=== PATIENT | female | born 1955 | race Caucasian/White ===

== ENCOUNTER → 2020-06-01 | Outpatient (CLI) | payer OTHER, MEDICARE ==
[~2020-06-01] MED LIST: ASA81BEC PO; CENTRUM SILVER1 EAC6 PO; FIBER THERAPY0.52 GM PO; IBUPROFEN200 M1 PO; LIPITOR 10 MG10 M1 PO; LOSARTAN-HCTZ1 EAC3 PO; MAG-OXIDE400 MG PO; MIRAPEX0.125 MG PO; OMEGA 3-6-9 11200 M1 PO; TURMERIC500 M2 PO; VITAMIN D325 MC3 PO
== END ==
LOC: LAB 07:36
PROVIDERS: ATTEND Orthopaedic Surgery
DX: Z01.812 Encounter for preprocedural laboratory examination (principal); Z20.822 Contact with and (suspected) exposure to COVID-19

== ENCOUNTER 2020-06-07 11:05 | Observation (INO) | payer OTHER, MEDICARE ==
[2020-06-01 11:08] LABS: HEMATOCRIT 40.2 % (37.0-47.0); HEMOGLOBIN 13.2 gm/dL (12.0-15.0); MCH 32.9 pg (26.0-34.0); MCHC 32.9 g/dL (28.0-37.0); RBC 4.02 mil/uL (4.20-5.00); RDW 12.1 % (10.5-14.5); WBC 4.5 thou/uL (4.0-11.0)
[2020-06-01 11:09] LABS: URINE BILIRUBIN NEGATIVE (Negative); URINE BLOOD NEGATIVE (Negative); URINE CLARITY CLEAR; URINE COLOR YELLOW; URINE GLUCOSE-RANDOM* NEGATIVE (Negative); URINE KETONES NEGATIVE (Negative); URINE LEUKOCYTES-REFLEX NEGATIVE (Negative); URINE NITRITE-REFLEX NEGATIVE (Negative); URINE PROTEIN (DIPSTICK) NEGATIVE (Negative); URINE SPECIFIC GRAVITY <= 1.005 (1.005-1.035); URINE UROBILINOGEN 0.2 E.U./dl (0.2-1.0)
[2020-06-01 11:17] LABS: CALCIUM 9.4 mg/dL (8.5-10.1); CREATININE 1.1 mg/dL (0.6-1.0); POTASSIUM 3.6 mmol/L (3.5-5.1)
[2020-06-01 11:27] LABS: PROTIME 10.5 Seconds (9.3-11.4)
--- NOTE | 2020-06-01 11:37 | EKG ---
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
[~2020-06-07] VITALS: Ht 167.6 cm; Wt 97.1 kg
[2020-06-07 12:00] VITALS: BP 137/73
[2020-06-07 18:10] VITALS: BP 127/72
--- NOTE | 2020-06-07 18:30 | NUR ---
PT RECEIVED FROM THE REC ROOM AT 1715 ALERT AND IN NO PAIN. SOME TINGLING IN TOES. LUCIANO DSNG DRY. POLAR PACK IN PLACE W/ TEDS/SCDS. EATING AND DRINKING WELL. VOIDED PER BEDPAN. WILL WORK W/ THERAPY TOMORROW AND GO HOME.
[2020-06-07 19:44] VITALS: BP 131/66
--- NOTE | 2020-06-08 05:04 | NUR ---
ASSESSED AT START OF SHIFT. PT A&OX4. RATES PAIN 5/10. MANAGED WITH PO PAIN PILL. IV INTACT AND FLUIDS INFUSING. LEFT KNEE DRESSING INTACT WITH LUCIANO AND POLAR PACK. SCD'S AND TEDHOSE ON BHANU LOWER EXT. MILD TINGLING IN LEG ON ASSESSEMENT. VOIDS VIA BED HARDING. FALL PREC IN PLACE AND CALL LIGHT AT REACH WILL CONT WITH POC TILL EOS.
[2020-06-08 05:06] VITALS: BP 97/51
[2020-06-08 06:12] LABS: HEMATOCRIT 30.4 % (37.0-47.0); HEMOGLOBIN 10.2 gm/dL (12.0-15.0); MCHC 33.7 g/dL (28.0-37.0); RBC 3.01 mil/uL (4.20-5.00); RDW 12.2 % (10.5-14.5); WBC 9.2 thou/uL (4.0-11.0)
[2020-06-08 07:55] VITALS: BP 103/47
[2020-06-08] MEDS ORDERED: HYDROCODON-ACE1 EAC7 PO (10:01)
[2020-06-08] MEDS ORDERED: NEURONTIN 300M300 M2 PO (10:02)
[2020-06-08] MEDS ORDERED: MS CONTIN15 MG PO (10:02)
--- NOTE | 2020-06-08 10:06 | O ---
[facility] [place] [address] OPERATIVE REPORT Name: SWAPNA SANTIAGO Room #: 447-P [facility] Kasia#: [id number] Admission: 06/07/20 Attend Phys: Fabian Jacobson MD Discharge: Date of : 55 Report #: [id number] THIS REPORT FOR: cc: DARIAN RICHARDSON MD, RADHIKA MD Abraham,Fabian Shea MD ~ DATE OF SERVICE: 06/07/2020 PREOPERATIVE DIAGNOSIS: Left knee osteoarthritis. POSTOPERATIVE DIAGNOSIS: Left knee osteoarthritis. PROCEDURE: Left total knee arthroplasty using Navio robotic creative assistant. SURGEON: Fabian Jacobson MD SIDE PULLER: Michelle Crowell PA-C. INDICATIONS FOR SIDE PULLER: Throughout the case, extensive retraction and manipulation of the knee was required. This was afforded to me by my creative assistant. ANESTHESIA: LMA with an adductor canal block. IMPLANTS: Vang and Nephew size 5 Journey II BCS Oxinium femur, size 3 tibia, size 10 polyethylene and size 32 patella. TOURNIQUET TIME: 57 minutes. ESTIMATED BLOOD LOSS: 25 mL. COMPLICATIONS: None. SPECIMENS: None. CONDITION UPON LEAVING THE OPERATING ROOM: Stable. INDICATIONS FOR PROCEDURE: The patient is a 65-year-old female with left knee osteoarthritis. She had failed conservative measures for this and after discussion with her, she elected for left total knee arthroplasty. DESCRIPTION OF PROCEDURE: Risks, benefits, alternatives, complications were discussed in detail with the patient including but not limited to risk of anesthesia, risk of damage to nerves, arteries, blood vessels, risk for infection, bleeding, risk for continued knee pain, need for reoperation. Informed consent was obtained from the patient. Left knee was appropriately [address] [address] OPERATIVE REPORT Name: SWAPNA SANTIAGO Room #: 447-P [facility] John Pedroza#: [id number] Admission: 06/07/20 Attend Phys: Fabian Jacobson MD Discharge: Date of : 55 Report #: [id number] marked in the preoperative holding area. IV Ancef was given for preoperative antibiotics. She was brought to the operating room and placed in the supine position on the operating room table. LMA anesthesia was induced without complication. Tourniquet was placed on the left thigh. Left lower extremity was prepped and draped in normal sterile fashion. Timeout was performed properly identifying the patient and procedure as well as the instrumentation and implants. All in the operating room were in agreement. Left lower extremity was exsanguinated, tourniquet was inflated. Tourniquet time was 57 minutes. Standard midline approach to the knee was made with 10 blade through the skin. Dissection was taken down sharply to the fascia and deep flaps were developed medially and laterally. Fresh 10 blade was used to make a medial parapatellar arthrotomy and the knee was inspected. There was severe patellofemoral compartment osteoarthritis, moderate medial and lateral compartment arthritis. ACL and PCL were removed sharply. Reference pins were placed in the femur and the tibia. The knee was then digitally mapped using the EnviroGene robotic system. Intraoperative plan was made and we sized the size 5 femur with a size 3 tibia and a 10 spacer. After acceptance of the intraoperative plan, the distal femoral cut was made with Navio bur. Distal femoral cutting block was pinned in place and chamfer cuts were made. Attention was turned to the tibia. Remainder of the menisci removed with Bovie cautery. Tibial resection guide was pinned in place using the Navio for placement and tibial resection was made. Flexion and extension gaps were then checked and found to be slightly tight laterally in extension and a limited lateral release was performed using the pie crust technique. This balanced the knee well. Tibia was sized, found to be a size 3. A size 3 tibial trial was placed, pinned and punched. A size 5 femoral trial was placed and box cut was made. This was then trialed with a size 9 and then a size 10 polyethylene. The size 10 polyethylene demonstrated 1-2 millimeter of laxity medially and laterally throughout range of motion of the knee. A 9 mm of bone was resected from the posterior surface of the patella and a size 32 patellar trial button was placed. Knee was taken through range of motion, found to be stable, found to have good patellar tracking. Trial components were removed. Bony ends were thoroughly irrigated with normal saline. A final size 3 tibia, size 5 Journey II BCS Oxinium femur and a size 32 patella were cemented in place using standard cementation techniques. While the cement cured, a periarticular injection consisting of morphine, ropivacaine, epinephrine, Toradol was placed around the knee joint capsule. After the cement cured, the tourniquet was deflated. Hemostasis was obtained with Bovie cautery. A final size 10 polyethylene was placed. A gram of vancomycin was placed deep in the joint. Fascia was closed with 0 Vicryl, skin was closed with 2-0 Vicryl, skin staple and a LUCIANO dressing [address] [address] OPERATIVE REPORT Name: SWAPNA SANTIAGO Room #: 447-P [facility] John Pedroza#: [id number] Admission: 06/07/20 Attend Phys: Fabian Jacobson MD Discharge: Date of : 55 Report #: [id number] was applied. The patient tolerated this procedure well and went to the recovery room under care of anesthesia postoperatively. <ELECTRONICALLY SIGNED> By: Fabian Jacobson MD 06/08/20 1006 0705 0727 Fabian Jacobson MD /nt
[2020-06-08 13:46] VITALS: BP 103/47
--- NOTE | 2020-06-08 13:48 | NUR ---
PT CARE ASSUMED AT 0700. A&Ox4. PT UP WITH PT AND CLEARED TO DISCHARGE. LUCIANO DRESSING DRY AND INTACT. POLAR CARE/ CAILIN HOSES/ SCD'S IN PLACE. SCOLPAMINE PATCH BEHIND R. EAR. IV PATENT WITH N SHELLY OR EDMEA, SALINE LOCKED. IV REMOVED. VITALS STABLE. PT DISCAHRGED WITH NO FURTHER QUESTIONS. FALL PROTOCOL IN PLACE. CALL LIGHT IN REACH. WILL CONTINUE TO MONITOR UNTIL RIDE ARRIVES. PAIN CONTROLLED WELL WITH PAIN MEDICATION ON BOARD.
--- NOTE | 2020-06-08 14:58 | NUR ---
CM REVIEWED CHART AND SPOKE WITH CARE TEAM. CM MET WITH PT AT BEDSIDE THIS DAY. PT APPERARED TO BE A&O X4. CM ROLE INTRODUCED. PT INDICATED SHE LIVES IN A HOUSE WITH HER SPOUSE WITH 2 STEPS TO ENTER AND NONE SHE WILL NEED TO USE UPON DC. 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 PT INDICATED SHE NEEDS A FWW FOR HOME USE UPON DC. PT INDICATED NO PREFERENCE FOR PROVIDERS. FWW ORDERED THROUGH [facility] IT WAS DELIVERED. PT ESTABLISHED WITH OP PT AT [facility] IN [place]. PT IS TO DC HOME THIS AFTERNOON. NO OTHER CM INTERVENTION INDICATED. CASE CLOSED.
== END 2020-06-08 14:24 | disposition home or self-care (01) ==
LOC: OR 11:05 → TBA 11:05 → OR 16:04 → 4S 17:02 → OR 17:02 → 4S 06-08 14:24
PROVIDERS: ADMIT Orthopaedic Surgery; ATTEND Orthopaedic Surgery
DX: M17.12 Unilateral primary osteoarthritis, left knee (principal); Z79.899 Other long term (current) drug therapy
CPT/HCPCS: 27447; S2900; 50010; 50101; 50415; 50954; 51130; 51225; 51320; 51412; 52001; 52282; 53000; 53078; 53365; 56527; 56528; 57095; 57103; 57110; 57127; 57180; 62110; 62900; 64042; 70005

== ENCOUNTER → 2021-01-10 | Outpatient (CLI) | payer OTHER, MEDICARE ==
[~2021-01-10] MED LIST changes: +ESCITALOPRAM OXA5 MG PO; +HYDROCODON-ACE1 EAC7 PO; +MELATONIN3 M1 PO; +MS CONTIN15 MG PO; +NEURONTIN 300M300 M2 PO; +OMEPRAZOLE40 MG PO; +VITAMIN B-121000 MC2 SUBLING; +VITAMIN B-125000 MCG DISSOLVE
[2021-01-10 14:00] LABS: HEMATOCRIT 35.3 % (37.0-47.0); MCH 33.7 pg (26.0-34.0); MCHC 33.9 g/dL (28.0-37.0); MCV 99.4 fL (80.0-100.0); RBC 3.55 mil/uL (4.20-5.00); RDW 12.7 % (10.5-14.5)
[2021-01-10 14:10] LABS: ALBUMIN 3.7 g/dL (3.4-5.0); CALCIUM 9.4 mg/dL (8.5-10.1); CREATININE 1.1 mg/dL (0.6-1.0); POTASSIUM 3.9 mmol/L (3.5-5.1)
[2021-01-10 14:13] LABS: URINE BILIRUBIN NEGATIVE (Negative); URINE BLOOD NEGATIVE (Negative); URINE CLARITY CLEAR; URINE COLOR YELLOW; URINE GLUCOSE-RANDOM* NEGATIVE (Negative); URINE KETONES NEGATIVE (Negative); URINE LEUKOCYTES-REFLEX NEGATIVE (Negative); URINE NITRITE-REFLEX NEGATIVE (Negative); URINE PROTEIN (DIPSTICK) NEGATIVE (Negative); URINE UROBILINOGEN 0.2 E.U./dl (0.2-1.0)
[2021-01-10 14:14] LABS: PROTIME 10.9 Seconds (10.5-12.1)
== END ==
LOC: PAC 12:57
PROVIDERS: ATTEND Orthopaedic Surgery
DX: M17.11 Unilateral primary osteoarthritis, right knee (principal); I10 Essential (primary) hypertension

== ENCOUNTER 2021-01-24 10:43 | Observation (INO) | payer OTHER, MEDICARE ==
[~2021-01-24] VITALS: Ht 167.6 cm; Wt 101.6 kg
--- NOTE | ~2021-01-24 | O ---
[facility] [place] [address] OPERATIVE REPORT Name: SWAPNA SANTIAGO Room #: 447-P [facility] MSaran#: [id number] Admission: 01/24/21 Attend Phys: Fabian Jacobson MD Discharge: Date of : 55 Report #: [id number] THIS REPORT FOR: cc: Suyapa Cohen MD, Cassandra MD Abraham,Fabian Shea MD ~ DATE OF SERVICE: 01/24/2021 PREOPERATIVE DIAGNOSIS: Right knee osteoarthritis. POSTOPERATIVE DIAGNOSIS: Right knee osteoarthritis. PROCEDURE: Right total knee arthroplasty using Navio robotic assistance. SURGEON: Fabian Jacobson MD. FUEL QUALITY TECH: Michelle Crowell PA-C. INDICATION FOR FUEL QUALITY TECH: Throughout the case, extensive retraction, manipulation of the knee was required. This is supported by my promotions assistant sales marketing. ANESTHESIA: LMA with adductor canal block. IMPLANTS: A Vang and Nephew size 5 Journey II BCS Oxinium femur, size 3 tibia, size 11 polyethylene and size 32 patella. TOURNIQUET TIME: 49 minutes. ESTIMATED BLOOD LOSS: 25 mL. COMPLICATIONS: None. SPECIMENS: None. CONDITION UPON LEAVING THE OR: Stable. INDICATIONS FOR PROCEDURE: The patient is a 66-year-old female with right knee osteoarthritis. She had failed conservative measures for this and after discussion with her, she elected for right total knee arthroplasty. DESCRIPTION OF PROCEDURE: Risks, benefits, alternatives, complications were discussed in detail with the patient including but not limited to risk of anesthesia, risk of damage to nerves, arteries, blood vessels, risk for infection, bleeding, risk for continued knee pain, need for reoperation. Informed consent was obtained from the patient. The right knee was appropriately marked in the preoperative holding area. IV Ancef was given for [address] [address] OPERATIVE REPORT Name: SWAPNA SANTIAGO Room #: 447-P [facility] John Pedroza#: [id number] Admission: 01/24/21 Attend Phys: Fabian Jacobson MD Discharge: Date of : 55 Report #: [id number] preoperative antibiotics, brought to the operating room and placed in the supine position on the operating table. LMA anesthesia was induced without complication. Tourniquet was placed on the right thigh. Right lower extremity was prepped and draped in normal sterile fashion. Timeout was performed properly identifying the patient and procedure as well as the instrumentation and implants. All in the operating room in agreement. Right lower extremity was exsanguinated, tourniquet was inflated. Tourniquet time was 49 minutes. Standard midline approach to knee was made with 10 blade through the skin. Dissection was taken down sharply to the fascia. Deep flaps were developed medially and laterally. Fresh 10 blade was used to make a medial parapatellar arthrotomy, moderate medial and lateral compartment osteoarthritis with moderate to severe patellofemoral compartment osteoarthritis __ the tibia. The knee was then digitally mapped using the EmergenSee robotic system. Intraoperative plan was made. We sized the size 5 femur, the size 3 tibia and a 10 spacer. After acceptance of the intraoperative plan, the distal femoral cut was made with Navio bur. Distal femoral cutting block was pinned in place and chamfer cuts were made. Attention was turned to the tibia. Remainder of the menisci removed with Bovie cautery. Tibial resection guide was pinned in place using Navio for placement. Tibial resection was made. Flexion and extension gaps were checked and found to have good balance in flexion and extension both medially and laterally. Tibia sized, found to be a size 3. Size 3 tibial trial was placed, pinned and punched. Size 5 femoral trial was placed, box cut was made. This was then trialed with a size 10 and then a size 11 polyethylene and size 11 polyethylene demonstrated 1-2 mm laxity medially and laterally throughout range of motion of the knee. A 9 mm of bone was resected from the posterior surface of the patella and a size 32 patellar trial button was placed. Knee was taken through range of motion, found to be stable, found to have good patellar tracking. Trial components were removed. Bone ends were thoroughly irrigated with normal saline. Final size 3 tibia, size 5 Journey II BCS Oxinium femur, size 32 patella were cemented in place using standard cementation techniques. While the cement cured, a periarticular injection consisting of morphine, ropivacaine, epinephrine, Toradol was placed around the knee joint capsule. After the cement cured, tourniquet was deflated. Hemostasis was obtained with Bovie cautery. Final size 11 polyethylene was placed. A gram of vancomycin was placed deep in the joint. Fascia was closed with 0 Vicryl. Skin was closed with 2-0 Vicryl, skin staple and a LUCIANO dressing was applied. The patient tolerated this procedure well and went to recovery room under care of anesthesia postoperatively on. By: [id number] Fabian Jacobson MD /roscoe
[2021-01-24 11:46] VITALS: BP 171/78
--- NOTE | 2021-01-24 17:28 | NUR ---
PATIENT ARRIVED TO UNIT 4S VIA BED. A/O X 4. ROOM AIR. RIGHT AC IV. LR HUNG AND INFUSING @ 100 MLS/HR. RIGHT TOTAL KNEE WITH PAT WRAP IN PLACE, POLAR PACK TO RIGHT KNEE, PAIN ONLY 2/10 CURRENTLY, LUCIANO DRAIN. THERESA AT BEDSIDE. ADMISSION QUESTIONS COMPLETED. CURRENTLY EATING DINNER-TOLERATING WELL.
[2021-01-24 21:00] VITALS: BP 126/70
--- NOTE | 2021-01-25 04:58 | NUR ---
RECEIVED CARE OF THIS PATIENT AT 1900. PATIENT ALERT AND ORIENTED X4. DRESSING ON R KNEE D/I. HAS TEDS, POLAR ICE AND SCD'S ON. C/O PAIN, MED GIVEN. REMAINS ON BEDREST. SLEPT OFF AND ON DURING NIGHT.
[2021-01-25 05:19] VITALS: BP 118/72
[2021-01-25 08:56] VITALS: BP 121/67
--- NOTE | 2021-01-25 11:33 | NUR ---
ASSUMED PT CARE AROUND 0700. PT ALERT XORIENTED X 4.ON ROOM AIR. IV RT AC/SL. RT KNEE DONE YESTERDAY/ POLARICE PACKS/ PIC[employer] DRS IN PLACE. WORKED WELL WITH PHY THERAPY. USES WALKER AND GAIT BELT TO AMBULATE. GETTING DC'D TODAY. IN ROOM TO PICK HER. IV REMOVED ON DISCHARGE.
[2021-01-25 11:36] VITALS: BP 121/67
--- NOTE | 2021-01-25 15:46 | NUR ---
ASSESSMENT: CM REVIEWED CHART AND SPOKE WITH PATIENT AT THE BEDSIDE. PT IS S/P RIGHT TKA. PT REPORTS LIVING IN A HOUSE WITH HER . PT REPORTS TAHT SHE HAS ABOUT 2 STEPS WITH HANDRAIL TO ENTER THE HOME AND NO STEPS ONCE INSIDE. PT REPORTS HAVING A WALKER AT HOME BUT REPORTS NORMALLY BEING INDEPENDENT WITH ADLS AND AMBULATION. PT REPORTS HAVING OUTPATIENT THERAPY ARRANGED WITH [facility]. PT DID WELL WITH THERAPY TODAY AND D/C HOME WITH NO NEEDS.
== END 2021-01-25 13:15 | disposition home or self-care (01) ==
LOC: OR 10:43 → TBA 10:46 → OR 11:01 → 4S 15:29 → OR 15:48 → 4S 15:49
PROVIDERS: ADMIT Orthopaedic Surgery; ATTEND Orthopaedic Surgery
DX: M17.11 Unilateral primary osteoarthritis, right knee (principal); Z20.822 Contact with and (suspected) exposure to COVID-19
CPT/HCPCS: 50010; 50101; 50415; 50954; 51130; 51225; 51320; 52001; 52282; 53000; 53078; 53365; 56527; 56528; 57095; 57103; 57110; 57127; 57180; 62110; 62900; 64043; 65060; 70005